=== PATIENT | female | born 2000 | race African-American/Black ===

== ENCOUNTER 2022-05-15 08:35 | Emergency (ER) | payer BC, SELFPAY ==
--- NOTE | 2022-05-15 08:45 | ED.URI ---
HPI - URI/Sore Throat General Chief Complaint: Upper Respiratory Infection Stated Complaint: NAUSEA/HEADACHE/CHILLS/SORE THROAT/FEVER Time Seen by Provider: 05/15/22 09:00 Source: patient and RN notes reviewed Mode of arrival: ambulatory Limitations: no limitations History of Present Illness HPI Narrative: 22-year-old female presents with concern for nasal congestion, rhinorrhea, fever, headache, sore throat, nausea that started yesterday. Reports fever of 1 0 to last night. Reports she taking Tylenol, she is breast feeding. Reports her has similar symptoms MD elicited complaint: fever and sore throat Related Data Home Medications Medication Instructions Recorded Confirmed ferrous sulfate 324 mg (65 mg mg PO 05/15/22 iron) tablet,delayed release norethindrone acetate 1 mg-ethinyl tablet 05/15/22 estradiol 20 mcg tablet (Microgestin) vit no.95-ferrous tablet PO 05/15/22 fumarate 28 mg-folic acid 800 mcg tablet () Allergies Allergy/AdvReac Type Severity Reaction Status Date / Time No Known Allergies Allergy Verified 05/15/22 09:01 Review of Systems Review of Systems: CONSTITUTIONAL: Reports malaise, chills, fever. EYES: Denies visual changes, redness, or discharge. ENT: Reports rhinorrhea, congestion, sore throat. Denies sinus pain, otalgia CARDIOVASCULAR: Denies chest pain, palpitations, or edema. RESPIRATORY: Reports cough. Denies dyspnea. GASTROINTESTINAL: Denies abdominal pain, vomiting, diarrhea. Reports nausea SKIN: Denies rash or itching. MUSCULOSKELETAL: Denies myalgia. NEUROLOGIC: Reports headache. All systems reviewed & are unremarkable except as noted in HPI and below PMFSH Comments At time of signature, agree with nursing past medical, surgical, social and family history. There is no relevant family history pertinent to the presenting complaint Exam Narrative: GENERAL: Well-appearing, well-nourished, and in no acute distress. HEAD: Normocephalic EYES: PERRLA, conjunctivae clear ENT: Nares clear, turbinates edematous and erythematous, clear discharge. Mucous membranes moist. TM pearly perdomo with sharp light reflex bilaterally; no tragal tenderness. Oropharynx not erythematous without lesions. Tonsils not enlarged and without exudate, no drooling, no hoarseness, no trismus, uvula midline. NECK: Supple. No lymphadenopathy CHEST: Clear to auscultation, breath sounds equal. No wheezing, rhonchi, rales, or stridor. No respiratory distress, speaks in full sentences. HEART: Regular rate and rhythm. No murmur heard. SKIN: Warm, dry, no rash. NEURO: Alert and oriented x3. PSYCH: Normal mood and affect Course Course Emergency Course: Patient is aware of diagnosis, understands and agrees to treatment plan. Anticipatory guidance given. Patient agrees to follow-up as directed and is aware of reasons to seek care at the emergency department. Portions of this record may have been created with voice recognition software Level of Care: Express Care Visit Vital Signs Vital signs: Vital Signs Temperature 99.1 F 05/15/22 09:07 Pulse Rate 102 H 05/15/22 09:07 Respiratory Rate 16 05/15/22 09:07 Blood Pressure 115/68 05/15/22 09:07 Pulse Oximetry 100 05/15/22 09:07 Oxygen Delivery Room Air 05/15/22 09:07 Temperature 99.1 F 05/15/22 09:07 Pulse Rate 102 H 05/15/22 09:07 Respiratory Rate 16 05/15/22 09:07 Blood Pressure 115/68 05/15/22 09:07 Pulse Oximetry 100 05/15/22 09:07 Oxygen Delivery Room Air 05/15/22 09:07 Reviewed. MDM - URI/Sore Throat MDM Narrative Medical decision making narrative: Differential diagnosis considered: [place] virus, strep pharyngitis, allergic rhinitis, upper respiratory tract infection, sinusitis, rhinosinusitis, nasopharyngitis. viral pharyngitis, otitis media, otitis externa, pneumonia, bronchitis, viral cough syndrome, viral syndrome, and influenza. Exam findings show no acute concerns or ch
[2022-05-15 09:07] VITALS: BP 115/68; PULSE 102; RESP 16; TEMP 37.3; O2SAT 100
== END 2022-05-15 09:50 | disposition home or self-care (01) ==
PROVIDERS: Emergency Provider Nurse Practitioner
DX: B34.9 Viral infection, unspecified (principal); Z20.822 Contact with and (suspected) exposure to COVID-19
CPT/HCPCS: 87081; 87426; 87880; 99213; C9803; G0463

== ENCOUNTER 2022-08-18 16:40 | Emergency (ER) | payer BC, SELFPAY ==
--- NOTE | 2022-08-18 16:44 | ED.URI ---
HPI - URI/Sore Throat General Chief Complaint: Urogenital-Female Stated Complaint: UTI SYMPTOMS Time Seen by Provider: 08/18/22 16:42 Source: patient Mode of arrival: ambulatory Limitations: no limitations History of Present Illness HPI Narrative: Michell is a 22-year-old female patient presenting to the clinic today with complaints of possible urinary tract infection times 3-4 days. She reports she is having burning with urination, frequency, urgency and blood in her urine. Also reports some body aches and chills with lower abdominal discomfort and back pain. Denies any vaginal discharge. No concern for any STIs. Related Data Allergies Allergy/AdvReac Type Severity Reaction Status Date / Time No Known Allergies Allergy Verified 08/18/22 16:54 Review of Systems Review of Systems: Pertinent positives per HPI. Patient denies any fever, rash, headache, visual changes, dizziness, cough, runny nose, sore throat, shortness of breath, chest pain, palpitations, nausea, vomiting, diarrhea, constipation. PMFSH Comments At the time of my signature, I reviewed and agree with the nursing past medical, surgical, social, and family history. There is no relevant family history pertinent to the patient complaint. Exam Narrative: General: Well-developed, well nourished, in no apparent distress. Head: Normocephalic, atraumatic. Cardio: Regular rate and rhythm, s1 and s2 normal, no murmur appreciated. Resp: Clear to auscultation bilaterally, no rhonchi, rales, wheezing or rubs. Abdomen: Soft, pliable, bowel sounds present in all quadrants, mild tender to palpation over the urinary bladder, no organomegly, no CVAT tenderness. Course Course Emergency Course: Portions of this record may have been created with voice recognition software. Level of Care: Express Care Visit Vital Signs Vital signs: Vital signs reviewed MDM - URI/Sore Throat MDM Narrative Medical decision making narrative: At the time of visit patient is resting comfortably on the exam table. Urinalysis was positive for 3+ protein, 1+ leukocyte, ketones, bilirubin, and blood. Negative for CVAT tenderness will place the patient on 7 day course of Bactrim. I suspect that patient has urinary tract infection possibly early pyelonephritis. Supportive measures were discussed with the patient she voiced understanding discharge instructions and agrees to treatment plan Differential Diagnosis Differential diagnosis: Likely other (Acute cystitis, urinary tract infection, pyelonephritis, sexually transmitted infection) Discharge Plan Discharge Clinical Impression: Urinary tract infection Qualifiers: Urinary tract infection type: acute cystitis Hematuria presence: with hematuria Qualified Code(s): N30.01 - Acute cystitis with hematuria Patient Disposition: Home, Self-Care Condition: Stable Instructions: Antibiotic Form, Urinary Tract Infection in Women (ED) Additional Instructions: UA was positive for urinary tract infection. We will send for culture. Take Bactrim as prescribed Increase fluids and stay well hydrated Wipe front to back. May use wet wipes. Avoid tub baths If sexually active- pee before and after intercourse. Wear cotton panties Avoid tight clothing up against the genitals Follow up with your PCP in 1 week if symptoms persist. Prescriptions: New sulfamethoxazole-trimethoprim [Bactrim DS] 800-160 mg tablet 1 tablet PO Q12H 7 Days Qty: 14 0RF Follow-up/Referrals: UNKNOWN,DOCTOR [Non-Staff] - Time of Disposition: 17:08 [facility] Nursing Documentation ED NIHSS nursing documentation: reviewed/agree
[2022-08-18 16:59] VITALS: BP 121/87; PULSE 63; RESP 16; TEMP 36.5; O2SAT 100
== END 2022-08-18 17:10 | disposition home or self-care (01) ==
PROVIDERS: Emergency Provider Nurse Practitioner Family
DX: N30.01 Acute cystitis with hematuria (principal)
CPT/HCPCS: 81003; 87077; 87086; 87088; 87186; 99213; G0463

== ENCOUNTER 2023-06-28 22:00 | Emergency (ER) | payer BC, SELFPAY ==
[2023-06-28 22:02] VITALS: BP 127/79; PULSE 91; RESP 18; TEMP 36.3; O2SAT 100
--- NOTE | 2023-06-28 22:40 | ED.GENADULT ---
HPI - General Adult General Chief complaint: Allergic Reaction Stated complaint: face is itching Time Seen by Provider: 06/28/23 22:23 History of Present Illness HPI narrative: this is a 23-year-old female presenting with an itchy face. Says her symptoms been going on for 2 weeks. She has been treating with Motrin and Tylenol which she says brings her some relief. No known allergens. No swelling to her lips tongue normal wheezing nausea vomiting or diarrhea. No rashes. She has not followed up with primary care physician. Related Data Allergies Allergy/AdvReac Type Severity Reaction Status Date / Time No Known Allergies Allergy Verified 08/18/22 16:54 Exam Narrative: APPEARANCE: No apparent distress. Head: no swelling to the lips tongue or uvula EYES: EOMI, NOSE: Atraumatic NECK: Trachea midline RESPIRATORY: No increased rate of breathing clear to auscultation CARDIOVASCULAR: RRR, no peripheral edema ABDOMINAL: Non-distended soft nontender MUSCULOSKELETAl: No obvious deformities NEURO: Alert. Moving 4/4 extremities SKIN:: No hives or urticaria PSYCHIATRIC: Normal affect Course Vital Signs Vital signs: Vital Signs Temperature 97.3 F L 06/28/23 22:02 Pulse Rate 91 06/28/23 22:02 Respiratory Rate 18 06/28/23 22:02 Blood Pressure 127/79 06/28/23 22:02 Pulse Oximetry 100 06/28/23 22:02 Oxygen Delivery Room Air 06/28/23 22:02 Temperature 97.3 F L 06/28/23 22:02 Pulse Rate 91 06/28/23 22:02 Respiratory Rate 18 06/28/23 22:02 Blood Pressure 127/79 06/28/23 22:02 Pulse Oximetry 100 06/28/23 22:02 Oxygen Delivery Room Air 06/28/23 22:02 Medical Decision Making [facility] Narrative Medical decision making narrative: -Course: 23-year-old female presenting with itchy face [id number]. No objective signs of allergic reaction. Patient be treated with steroids and Benadryl and given primary care follow-up return precautions. Vital Signs Vital Signs: Vital Signs Temperature 97.3 F L 06/28/23 22:02 Pulse Rate 91 06/28/23 22:02 Respiratory Rate 18 06/28/23 22:02 Blood Pressure 127/79 06/28/23 22:02 Pulse Oximetry 100 06/28/23 22:02 Oxygen Delivery Room Air 06/28/23 22:02 Temperature 97.3 F L 06/28/23 22:02 Pulse Rate 91 06/28/23 22:02 Respiratory Rate 18 06/28/23 22:02 Blood Pressure 127/79 06/28/23 22:02 Pulse Oximetry 100 06/28/23 22:02 Oxygen Delivery Room Air 06/28/23 22:02 Discharge Plan Discharge Clinical Impression: Allergic reaction Patient Disposition: Home, Self-Care Condition: Stable Instructions: Antibiotic Form, Allergies (ED) Additional Instructions: Please follow-up with your primary care physician. Return if you develop swelling of her mouth or lips, difficulty breathing, lightheadedness or dizziness. Prescriptions: No Action sulfamethoxazole-trimethoprim [Bactrim DS] 800-160 mg tablet 1 tablet PO Q12H 7 Days Qty: 14 0RF Follow-up/Referrals: PHYSICIAN,SOLUTIONS SPECIALIST [Primary Care Provider] - Lonny Zavala MD [Physician] - 1 Week (Establish pcp.)
[2023-06-28] MEDS: diphenhydrAMINE HCl CAP 25 MG CAPSULE PO (23:00)
[2023-06-28] MEDS: dexAMETHasone SOD PHOS INJ 10 MG/ML 1 ML VIAL IM (23:01)
[2023-06-28 23:21] VITALS: BP 124/81; PULSE 78; RESP 14; O2SAT 99
== END 2023-06-28 23:22 | disposition home or self-care (01) ==
PROVIDERS: Emergency Provider Emergency Medicine
DX: T78.40XA Allergy, unspecified, initial encounter (principal); X58.XXXA Exposure to other specified factors, initial encounter
CPT/HCPCS: 96372; 99283; A9270; J1100

== ENCOUNTER 2023-10-04 21:40 | Emergency (ER) | payer MEDICAID, SELFPAY ==
--- NOTE | ~2023-10-04 | CT_ITS ---
CT of the Abdomen and Pelvis: Indication: Abdominal pain Technique: 2.5 mm axial scans were obtained through the abdomen and pelvis following intravenous adm inistration of 100 cc of Omnipaque 350. Dose reduction technique was used on this scan by utilizing a utomated exposure control and iterative reconstruction technique. The dose-length product (DLP) was 2 16.17 mGy-cm. Findings: Scans through the lung bases are unremarkable. The liver, spleen, pancreas, gallbladder, adrenals and kidneys are within normal limits. No evidence of aortic aneurysm. No lymphadenopathy. No bowel obstruction or bowel wall thickening. Multiple fluid-filled small bowel is noted. Images through the pelvis were performed. Urinary bladder unremarkable. IUD in place. No significant adnexal mass evident. No ascites. Impression: Possible nonspecific small bowel enteritis. IUD in place. Reviewed, dictated and finalized at [facility]. Impression: Possible nonspecific small bowel enteritis. IUD in place.
[2023-10-04 21:42] VITALS: BP 118/71; PULSE 98; RESP 14; TEMP 36.6; O2SAT 100
[2023-10-04 21:58] LABS: BEDSIDEPREGUCG Negative
[2023-10-04 22:03] LABS: Basophils Percent Auto 0.2 % (0.2-1.2); Eosinophils Absolute Auto 0.1 K/mm3 (0-0.3); Eosinophils Percent Auto 0.8 % (0-4.4); Hematocrit 41.4 % (37.0-47.0); Hemoglobin 13.5 g/dL (12.0-15.0); Immature Granulocyte Absolute 0.05 K/mm3 (0.00-0.031); Immature Granulocyte Percent A 0.5 % (0-0.5); Lymphocytes Absolute Auto 0.59 K/mm3 (0.9-3.2); Lymphocytes Percent Auto 5.5 % (18.3-44.2); Mean Corpuscular HGB Conc 32.6 g/dl (32-36); Mean Corpuscular Hemoglobin 27.4 pg (26-34); Mean Platelet Volume 11.4 fl (7.4-10.4); Monocytes Percent Auto 9.6 % (2.6-8.5); Neutrophils Absolute Auto 8.9 K/mm3 (1.3-6.7); Neutrophils Percent Auto 83.4 % (45.5-73.1); Platelet Count Result 207 k/mm3 (150-375); Red Blood Count 4.93 M/mm3 (4.2-5.4); White Blood Count 10.7 K/mm3 (4.5-10.0)
[2023-10-04 22:11] LABS: Add Urine Microscopic? YES; Appearance Urine Clear (Clear); Bacteria Urine Rare /hpf; Bilirubin Urine Negative (Negative); Blood Urine Negative (Negative); Color Urine Yellow (Yellow); Glucose Urine UA Negative (Negative); Ketones Urine Trace mg/dL (Negative); Leukocyte Esterase Ur Trace LEU/UL (Negative); Nitrate Urine Negative (Negative); Non Pathogenic Casts 0-2; Protein Urine 1+ mg/dL (Negative); RBC Urine 0-2 /hpf (0-2); Specific Grav Ur 1.032 (1.001-1.035); Squamous Epithelial Cell Urine Moderate /hpf (Few)
[2023-10-04 22:16] LABS: Alanine Aminotransferase 13 U/L (6-35); Albumin Level 4.8 g/dL (3.5-5.1); Alkaline Phosphatase 92 U/L (38-126); Anion Gap 13 mmol/L (4-12); Aspartate Amino Transferase 22 U/L (14-36); Bilirubin,Total 0.4 mg/dL (0.2-1.3); Blood Urea Nitrogen 8 mg/dL (7-17); Calcium 9.3 mg/dL (8.4-10.2); Carbon Dioxide 21 mmol/L (22-30); Chloride 101 mmol/L (98-107); Estimated CRCL calculation 104 ml/min; Estimated Glomerular Filt Rate > 60; Glucose 93 mg/dL (65-110); Lipase 79 U/L (23-300); Potassium 3.8 mmol/L (3.4-5.0); Sodium 135 mmol/L (137-145)
[2023-10-05] VITALS: O2SAT 100
[2023-10-05 00:01] VITALS: BP 128/75; PULSE 89; RESP 13; O2SAT 100
[2023-10-05 01:11] LABS: Influenza A QL RT-PCR Negative (Negative); Influenza B QL RT-PCR Negative (Negative); RSV RNA, RT-PCR Negative (Negative); SARS-CoV-2 RNA PCR Positive (Negative)
[2023-10-05] MEDS: SODIUM CHLORIDE 0.9% IV 1,000 ML 999 ML IV CONT (01:37)
[2023-10-05] MEDS: diphenhydrAMINE HCl INJ 50 MG/ML VIAL IV PUSH (01:38)
[2023-10-05] MEDS: PROCHLORPERAZINE EDISYLATE 10 MG/2 ML VIAL IV PUSH (01:38)
[2023-10-05 01:40] VITALS: BP 124/68; PULSE 86; RESP 16; TEMP 37.6; O2SAT 100
[2023-10-05 02:29] VITALS: BP 121/73; PULSE 68; RESP 13; O2SAT 100
--- NOTE | 2023-10-05 03:52 | ED.GENADULT ---
HPI - General Adult General Chief complaint: Nausea/Vomiting/Diarrhea Stated complaint: nausea, vomiting, fevers Time Seen by Provider: 10/05/23 00:37 History of Present Illness HPI narrative: patient is a 3-year-old female who presents emergency department chief complaint of nausea vomiting and fevers. She reports the nausea started approximately 3 days ago and started having fever and vomiting. The patient reports had a headache for the last 24 hours a denies any diarrhea reports that she has been tested for that was negative patient reports that about 3-4 episodes of vomiting. Related Data Allergies Allergy/AdvReac Type Severity Reaction Status Date / Time No Known Allergies Allergy Verified 10/04/23 21:41 Review of Systems Review of Systems: A 10 system review of systems was completed on the patient and is negative except for what is stated in the HPI. Nursing and ancillary documentation was reviewed. Exam Narrative: GENERAL: Well-appearing, well-nourished, and in no acute distress. HEAD: Normocephalic, atraumatic. EYES: PERRLA and EOMI. ENT: Nares clear, no rhinorrhea or epistaxis. Mucous membranes moist. NECK: Supple. CHEST: Clear to auscultation. No respiratory distress. HEART: Regular rate and rhythm. No murmur heard. Normal peripheral pulses. ABDOMEN: Soft, Diffuse mild tenderness nondistended, normal active bowel sounds. EXTREMITIES: Normal range of motion. No edema. SKIN: Warm, dry, no rash. NEURO: No focal deficits. Alert and oriented x3. PSYCH: Normal mood and affect. Course Vital Signs Vital signs: Vital Signs Temperature 36.6 C 10/04/23 21:42 Pulse Rate 98 10/04/23 21:42 Respiratory Rate 14 10/04/23 21:42 Blood Pressure 118/71 10/04/23 21:42 Pulse Oximetry 100 10/04/23 21:42 Oxygen Delivery Room Air 10/04/23 21:42 Temperature 37.6 C 10/05/23 01:40 Pulse Rate 68 10/05/23 02:29 Respiratory Rate 13 10/05/23 02:29 Blood Pressure 121/73 10/05/23 02:29 Pulse Oximetry 100 10/05/23 02:29 Oxygen Delivery Room Air 10/05/23 00:00 Medical Decision Making [facility] Narrative Medical decision making narrative: differential diagnosis includes viral illness, gastroenteritis, dehydration patient received laboratory testing showed white count of 10.7 bedside test was negative electrolytes showed a CO2 of 21 anion gap 13 creatinine is 0.6 liver enzymes are within normal limits lipase was normal urinalysis showed trace ketones and 11-20 white blood cells. COVID was positive CT scan of the abdomen pelvis showed evidence of enteritis the patient was started on Bactrim given a prescription for antiemetics and will be discharged home Vital Signs Vital Signs: Vital Signs Temperature 36.6 C 10/04/23 21:42 Pulse Rate 98 10/04/23 21:42 Respiratory Rate 14 10/04/23 21:42 Blood Pressure 118/71 10/04/23 21:42 Pulse Oximetry 100 10/04/23 21:42 Oxygen Delivery Room Air 10/04/23 21:42 Temperature 37.6 C 10/05/23 01:40 Pulse Rate 68 10/05/23 02:29 Respiratory Rate 13 10/05/23 02:29 Blood Pressure 121/73 10/05/23 02:29 Pulse Oximetry 100 10/05/23 02:29 Oxygen Delivery Room Air 10/05/23 00:00 Lab Data 10/04/23 21:54 10/04/23 21:54 Labs: Lab Results 10/04/23 10/04/23 10/05/23 Range/Units 21:54 21:56 00:27 WBC 10.7 H (4.5-10.0) K/mm3 RBC 4.93 (4.2-5.4) M/mm3 Hgb 13.5 (12.0-15.0) g/dL Hct 41.4 (37.0-47.0) % MCV 84.0 (80-100) fl MCH 27.4 (26-34) pg MCHC 32.6 (32-36) g/dl RDW 13.0 (11.5-14.5) % Plt Count 207 (150-375) k/mm3 MPV 11.4 H (7.4-10.4) fl Immature Gran % (Auto) 0.5 (0-0.5) % Neut % (Auto) 83.4 H (45.5-73.1) % Lymph % (Auto) 5.5 L (18.3-44.2) % [place] % (Auto) 9.6 H (2.6-8.5) % Eos % (Auto) 0.8 (0-4.4) % Baso % (Auto) 0.2 (0.2-1.2) % Lymph # (Auto) 0.59 L (0
== END 2023-10-05 04:04 | disposition home or self-care (01) ==
PROVIDERS: Emergency Provider Emergency Medicine
DX: U07.1 COVID-19 (principal); N39.0 Urinary tract infection, site not specified; R11.2 Nausea with vomiting, unspecified
CPT/HCPCS: 36415; 74177; 80053; 81001; 81025; 83690; 85025; 87086; 87637; 96361; 96374; 96375; 99284; J0780; J1200; J7030; Q9967